=== PATIENT | female | born 1990 | race Caucasian/White ===

== ENCOUNTER 2021-05-05 03:40 | Emergency (ER) | payer OTHER, SELFPAY ==
--- NOTE | ~2021-05-05 | XR_ITS ---
EXAMINATION: XR CHEST CLINICAL INFORMATION: Chest pain COMPARISON: None TECHNIQUE: PA view of the chest was obtained. FINDINGS: Lungs are clear. No consolidation, pneumothorax, or pleural effusion. Cardiac and mediastinal contours are normal. Pulmonary vasculature is unremarkable. Osseous structures are unremarkable. XR/XR chest 1V IMPRESSION: No acute cardiopulmonary findings
--- NOTE | 2021-05-05 03:47 | ECG_ITS ---
Test Reason : CHEST PAIN Blood Pressure : / mmHG Vent. Rate : 077 BPM Atrial Rate : 077 BPM P-R Int : 120 ms QRS Dur : 080 ms QT Int : 366 ms P-R-T Axes : 045 061 037 degrees QTc Int : 414 ms Normal sinus rhythm Normal ECG When compared with ECG of 09-SEP-2015 17:49, No significant change was found Referred By: Generic ED Physician Electronically Signed By:Steven Salas
[2021-05-05 03:55] VITALS: BP 170/113; PULSE 80; RESP 16; TEMP 36.4; O2SAT 99; BMI 26.6
[2021-05-05 04:11] LABS: MANUAL DIFF FLAG NO
[2021-05-05 04:13] LABS: Basophils Absolute Auto 0.1 X10*3/uL (0.0-0.2); Basophils Percent Auto 0.8 % (0-2); Eosinophils Absolute Auto 0.1 X10*3/uL (0.0-0.4); Eosinophils Percent Auto 1.8 % (0-4); Hemoglobin 14.1 g/dl (12.0-16.0); Imm Gran Abs Auto 0.02 X10*3/uL (0.00-0.03); Imm Gran Pct Auto 0.3 % (0.0-0.4); Lymphocytes Absolute Auto 2.3 X10*3/uL (1.2-4.9); Lymphocytes Percent Auto 32.6 % (20-40); Mean Corpuscular HGB Conc 34.4 g/dl (31.0-35.0); Mean Corpuscular Hemoglobin 33.3 pg (27.0-33.0); Mean Corpuscular Volume 96.9 fL (80.0-98.0); Mean Platelet Volume 9.1 fL (9.4-12.3); Monocytes Absolute Auto 0.6 X10*3/uL (0.1-1.2); Monocytes Percent Auto 8.2 % (2-11); Neutrophils Percent Auto 56.3 % (45-73); Platelet Count 239 X10*3/uL (160-400); Red Blood Count 4.23 X10*6/uL (4.20-5.50); Red Cell Distribution Width 12.3 % (11.0-16.0); White Blood Count 7.1 X10*3/uL (4.8-10.8)
[2021-05-05 04:26] LABS: Anion Gap 15 (12-20); Blood Urea Nitrogen 6 mg/dL (9-16); Calcium 9.5 mg/dL (8.4-10.2); Carbon Dioxide 22 mmol/L (22-29); Chloride 104 mmol/L (96-108); Estimated Glomerular Filt Rate > 60; Glucose Random 120 mg/dL (60-115); Potassium 3.7 mmol/L (3.3-5.1); Sodium 137 mmol/L (135-145)
[2021-05-05 04:33] LABS: Troponin-I High Sensitivity < 3.5 ng/L (<3.5-17.0)
[2021-05-05 06:21] LABS: Thyroid Stimulating Hormone 2.31 uIU/mL (0.32-4.0)
[2021-05-05 08:30] VITALS: BP 151/98; PULSE 77; RESP 16; TEMP 36.7; O2SAT 100
--- NOTE | 2021-05-05 09:13 | ED.GENADULT ---
HPI - General Adult General Chief complaint: Arrhythmia/Palpitations Stated complaint: elevated HR ? chest pain earlier today Time Seen by Provider: 05/05/21 05:48 Source: patient Mode of arrival: ambulatory Limitations: no limitations History of Present Illness HPI narrative: 30-year-old female who presents emergency department for evaluation of hypertension and palpitations. The patient states that she had a routine gynecology visit 1 or 2 weeks prior, she states she was feeling well for the visit. At the visit she was told that she had high blood pressure and she should follow-up with her doctor. Patient states that she has not been able to get in to see her PCP. She states that this morning at 01:30 hours she woke up from sleep with palpitations. She states that she felt like her heart was racing, the heart rate was regular and she did not skip any beats. She states she did get diaphoretic and she felt dizzy as if the room was spinning. She denied associated neck, jaw, arm or back pain. She had no nausea or vomiting. She states that the palpitations lasted for approximately 30 minutes and then resolved. She states that yesterday evening at around 22:00 she did have heartburn like symptoms which she describes as mild in these resolved. She has not had any chest pain with exertion. The patient states she is very concerned about her high blood pressure. She states that her mother suddenly at home at age 53 and the certificate listed the cause of as hypertension. Onset (ago): hour(s) (4) Location: chest (Heartburn like symptoms starting at 22:00) Radiation: non-radiation Severity: moderate Severity scale (1-10): 3 Quality: burning Pain Consistency: constant (Resolved by the time she came to the emergency department) Relieving factors: none Exacerbating factors: none Treatments prior to arrival: none Related Data Previous Rx's Medication Instructions Recorded lisinopril 10 mg tablet 10 mg PO DAILY #30 tab 05/05/21 Allergies Allergy/AdvReac Type Severity Reaction Status Date / Time No Known Allergies Allergy Verified 05/05/21 03:55 Review of Systems Review of Systems: Yes all other systems are reviewed and are negative [facility] Past Medical History [facility] Narrative: Past medical history: , gestational diabetes during her last in 2019. Past surgical history: None. Social history: She denies tobacco use. She drinks alcohol once a week. She denies drug use. Medical History (Updated 05/05/21 @ 09:20 by Ildefonso Claudio MD) No known health problems Social History Social History Smoked in Last 30 Days: No Use of substances other than those prescribed or required for medical reasons: No Advance Directives: No Advance Directives Information Provided: No Patient : No Physical Exam ED Vital Signs: Vital Signs - 24 hr 05/05/21 03:55 05/05/21 08:30 Temperature 97.6 F 98.1 F Pulse Rate 80 77 Respiratory Rate 16 16 Blood Pressure 170/113 H 151/98 H Pulse Oximetry 99 100 BMI result Body Mass Index 26.6 Const General: cooperative and no acute distress Orientation/consciousness: oriented to person and oriented to place Limitations: no limitations HENMT Head: Yes normal to inspection, Yes normocephalic and Yes atraumatic Ears: external ears normal General nose exam: Normal external nose present Face and sinus: Yes normal facial exam Mouth: Normal oral and palatal mucosa present Throat: Yes posterior oropharynx normal Eyes General: appearance normal, both eyes and all related structures Pupils: Equal, round and reactive pupils present Neck Neck: Yes normal visual inspection, Yes no lymphadenopathy, Yes trachea midline and Yes supple Chest Chest palpation & inspection: normal inspection of the chest and normal palpation of entire chest wall Resp Effort & Inspection: normal respiratory effort and able to speak in complete sentences Auscultation: clear to auscultation bilaterally Cardio Rate: regular rate Rhythm: regular rhythm Heart sounds: S1 normal heart sound present, S2 normal heart sound present and no murmurs GI Inspection: Yes normal to inspection Palpation (GI): Soft to palpation, nontender and no guarding Auscultation: normal bowel sounds General: Yes no CVA tenderness Back/Spine/Pelvis Back: no CVA tenderness Skin General skin exam: no rashes or lesions noted Neuro General: oriented to person and oriented to place Cranial nerves: Yes CN's II-XII intact bilaterally and Yes Equal, round and reactive pupils present Cognition (Neuro): normal cognition Motor exam (neuro): 5/5 motor strength present throughout Extrem General: Yes normal to inspection Psych Appearance: grossly normal Speech and movement: Normal speech and movement present Affect: normal affect Attitude: cooperative Thought process: Normal thought process present Thought content: Normal thought content present Course Course Course Narrative: 30-year-old male who presents emergency department for evaluation of palpitations and elevated blood pressure. Patient did have some chest pain is well last night around 22:00 which resolved, she then had palpitations at 01:30 hours which lasted 30 minutes. At the time my evaluation she was asymptomatic. Patient was told that she had elevated blood pressures 1-2 weeks prior when she had an career manager retain appointment. On presentation to the emergency department the patient did have an elevated blood pressure of 170/113 otherwise her vital signs were unremarkable. Patient's physical examination was normal. Patient's laboratory evaluation was unremarkable except for an elevated glucose of 120. Workup included a CBC, CMP troponin TSH. This time, I do not think that the patient's palpitations are concerning and I did discuss this with her and discussed outpatient workup. The patient did have 2 elevated blood pressure readings here in the emergency department of 170/113 and 158/98. I did discuss lifestyle measures such as losing weight, exercising cutting salt out of her diet as well as medications. The patient is very concerned about her elevated blood pressure like to start both interventions at the same time. Therefore the patient was started on lisinopril 10 mg once a day. She was advised to buy a blood pressure cuff and take her blood pressure 3 times a week for the next 2-3 weeks and to follow-up with her PCP to discuss further management of her hypertension. Medical Decision Making Lab Data Result diagrams: 05/05/21 04:06 05/05/21 04:06 Labs: Lab Results 05/05/21 05/05/21 05/05/21 Range/Units 04:06 04:06 04:06 WBC 7.1 (4.8-10.8) X10*3/uL RBC 4.23 (4.20-5.50) X10*6/uL Hgb 14.1 (12.0-16.0) g/dl Hct 41.0 (37.0-47.0) % MCV 96.9 (80.0-98.0) fL MCH 33.3 H (27.0-33.0) pg MCHC 34.4 (31.0-35.0) g/dl RDW 12.3 (11.0-16.0) % Plt Count 239 (160-400) X10*3/uL MPV 9.1 L (9.4-12.3) fL Immature Gran % (Auto) 0.3 (0.0-0.4) % Neut % (Auto) 56.3 (45-73) % Lymph % (Auto) 32.6 (20-40) % [place] % (Auto) 8.2 (2-11) % Eos % (Auto) 1.8 (0-4) % Baso % (Auto) 0.8 (0-2) % Lymph # (Auto) 2.3 (1.2-4.9) X10*3/uL [place] # (Auto) 0.6 (0.1-1.2) X10*3/uL Eos # (Auto) 0.1 (0.0-0.4) X10*3/uL Baso # (Auto) 0.1 (0.0-0.2) X10*3/uL Abs Immat Gran (auto) 0.02 (0.00-0.03) X10*3/uL Absolute Neuts (auto) 4.0 (2.0-8.3) x10*3/uL Absolute Nucleated RBC 0.000 (0.0-0.012) X10*3/uL Nucleated RBC % (auto) 0.0 (0.0-0.2) /100WBC Sodium 137 (135-145) mmol/L Potassium 3.7 (3.3-5.1) mmol/L Chloride 104 (96-108) mmol/L Carbon Dioxide 22 (22-29) mmol/L Anion Gap 15 (12-20) BUN 6 L (9-16) mg/dL Creatinine 0.84 (0.5-1.4) mg/dL Estim Creat Clear Calc 96.0 Estimated GFR > 60 Random Glucose 120 H (60-115) mg/dL Calcium 9.5 (8.4-10.2) mg/dL Troponin I High Sens < 3.5 (<3.5-17.0) ng/L TSH 2.31 (0.32-4.0) uIU/mL ECG Data Attestation: I personally reviewed and interpreted this ECG as follows: Interpretation: 0351: Normal sinus rhythm with a rate of 77, normal CO interval, QRS duration and QTC interval, no ST segment elevation, no ST segment depression, no PACs, no PVCs, this is a normal EKG. Discharge Plan Discharge Clinical Impression: Palpitations, Essential hypertension Patient Disposition: Home, Self-Care Instructions: Heart Palpitations (DC) Additional Instructions: Your blood pressure was high in the emergency department 170/113 and 151/98. Normal blood pressure is usually 120/80. Your blood work is all normal. You had a complete blood count, basic metabolic panel and TSH (thyroid screening exam) and a high sensitivity troponin I (this is a marker of heart damage-ears was normal). Your EKG was normal. Your chest x-ray was normal. High blood pressure instructions: The reason to check your blood pressure at home is to give your doctor an idea of what your blood pressure does when you are not in the doctor's office. Take your blood pressure in the mornings, Mondays , Wednesdays and Fridays and then write down these readings to discuss them with your doctor at your next visit. There are 2 strategies to reducing your blood pressure. As we discussed, cutting salt out of your diet, exercising and losing 5-10 lb may correct your blood pressure. As we also discussed, you would like to be started on a blood pressure medications therefore I am prescribing lisinopril 10 mg once a day. I will give you a 1 month supply. You will need to get refills of this medication from your doctor. It often takes 1-2 months or longer to get your blood pressure under control. The goal is to get your blood pressure under control over the rest of your life to prevent increased risk of heart disease, stroke and kidney failure. Please return to the emergency department if you develops concerning symptoms such as severe headache, chest pain, shortness of breath, difficulty walking secondary to shortness of breath, numbness, weakness, difficulty talking. Follow-up with your doctor to discuss your blood pressure readings in 2 weeks Please return to the emergency department if your symptoms get worse or if you develop any new symptoms that are concerning to you. Also review and follow the palpitation instructions, if you continue to have palpitations then your doctor may want to get a Holter monitor or event monitor as an outpatient. Prescriptions: New lisinopril 10 mg tablet 10 mg PO DAILY Qty: 30 0RF Interventions: ED Discharge Assessment Last Done: 05/05/21 09:33 Discharge Date/Time: 05/05/21 09:33
== END 2021-05-05 09:33 | disposition home or self-care (01) ==
PROVIDERS: Student in an Organized Health Care Education/Training Program; Emergency Provider Emergency Medicine Emergency Medical Services; PCP Internal Medicine
DX: R00.2 Palpitations (principal); I10 Essential (primary) hypertension
CPT/HCPCS: 36415; 71045; 80048; 84443; 84484; 85025; 93005; 99284